=== PATIENT | male | born 1975 | race Two or more races ===

== ENCOUNTER 2017-11-07 17:50 | Emergency (ER) | payer BC, MEDICAID ==
[~2017-11-07] VITALS: Ht 185.4 cm; Wt 126.1 kg
[2017-11-07 22:07] VITALS: BP 139/85
== END 2017-11-07 22:34 | disposition home or self-care (01) ==
LOC: ER 17:54
DX: R03.0 Elevated blood-pressure reading, without diagnosis of hypertension (principal); E11.9 Type 2 diabetes mellitus without complications; F17.210 Nicotine dependence, cigarettes, uncomplicated

== ENCOUNTER 2019-01-08 08:01 | Emergency (ER) | payer MEDICAID ==
[~2019-01-08] VITALS: Ht 182.9 cm; Wt 122.5 kg
[2019-01-08 08:42] LABS: Basophils # (auto) 0.1 uL; Eosinophils # (auto) 0.3 uL; Eosinophils % (auto) 2.5 % (0.0-7.0); Hematocrit 52.6 % (41.0-53.0); Hemoglobin 17.9 g/dL (13.5-17.5); Lymphocytes # (auto) 2.1 uL; Lymphocytes % (auto) 20.5 % (10.0-50.0); Mean Corpuscular Hemoglobin 30.8 pg (28.0-32.0); Mean Corpuscular Hgb Conc. 34.1 g/dL (32.0-36.0); Mean Corpuscular Volume 90.5 fL (80.0-100.0); Monocytes # (auto) 0.6 uL; Neutrophils # (auto) 7.1 uL; Platelet Count (auto) 342 10^3/uL (140-450); Red Blood Cells 5.81 10^6/uL (4.5-5.90); Red Cell Distribution Width 13.2 % (11.8-14.3); White Blood Cell 10.2 10^3/uL (4.4-10.8)
[2019-01-08] MEDS ORDERED: SODIUM CHLORIDE 0.9% 1,000 ML IV ONE (09:10)
[2019-01-08] MEDS ORDERED: ONDANSETRON HCL 4 MG/2 ML VIAL IV ONE (09:15)
[2019-01-08] MEDS ORDERED: MECLIZINE HCL 25 MG TAB PO ONE (09:15)
[2019-01-08 09:35] LABS: Albumin 4.1 g/dL (3.4-5.0); BUN/Creatinine Ratio 14.3; Calcium 9.1 mg/dL (8.5-10.1); Potassium 3.5 mmol/L (3.5-5.1)
[2019-01-08 09:39] LABS: Bilirubin, Total 0.9 mg/dL (0.2-1.0)
[2019-01-08 10:24] LABS: INR 0.98 (0.9-1.15); Partial Thromboplastin Time 26.6 sec (23.78-33.04); Prothrombin Time 10.5 sec (9.27-12.13)
[2019-01-08 10:40] LABS: Urine Bacteria NONE SEEN /hpf (None Seen); Urine Blood Negative /uL (Negative); Urine Specific Gravity 1.018 (1.001-1.035); Urine WBC 2 /hpf (0 - 3)
[2019-01-08 11:04] LABS: Alcohol, Urine < 3.0 mg/dL (0-5); Amphetamine Screen, Urine NEGATIVE (NEGATIVE); Barbiturate Scree,Urine NEGATIVE (NEGATIVE); Benzodiazephine Screen, Urine NEGATIVE (NEGATIVE); Cannabinoid Screen, Urine POSITIVE (NEGATIVE); Cocaine Screen, Urine NEGATIVE (NEGATIVE); Opiate Scree,Urine NEGATIVE (NEGATIVE); Phencyclidine Screen, Urine NEGATIVE (NEGATIVE)
[2019-01-08] MEDS ORDERED: LORazepam 2MG/ML-1ML VIAL IV ONE (13:30)
[2019-01-08 16:59] VITALS: BP 121/87
== END 2019-01-08 17:27 | disposition home or self-care (01) ==
LOC: ER 08:01
DX: G93.5 Compression of brain (principal); I10 Essential (primary) hypertension; F17.210 Nicotine dependence, cigarettes, uncomplicated
CPT/HCPCS: 36415; 70450; 70545; 70551; 71046; 80053; 80307; 81001; 85025; 85610; 85730; 93005; 96361; 96374; 99284; J2060; J7030

== ENCOUNTER 2020-05-28 11:28 | Inpatient (IN) | payer BC, MEDICAID ==
[~2020-05-28] VITALS: Ht 185.4 cm; Wt 101.6 kg
[2020-05-28] MEDS ORDERED: SODIUM CHLORIDE 0.9% 1,000 ML IVB ONE (12:07)
[2020-05-28 12:44] LABS: Basophils # (auto) 0.1 10 ^3/uL (0-0.2); Basophils % (auto) 0.6 % (0.0-2.0); Eosinophils # (auto) 0.3 10 ^3/uL (0-0.8); Eosinophils % (auto) 2.7 % (0.0-7.0); Hematocrit 46.8 % (41.0-53.0); Hemoglobin 16.3 g/dL (13.5-17.5); Lymphocytes # (auto) 1.4 10 ^3/uL (0.4-5.4); Lymphocytes % (auto) 14.9 % (10.0-50.0); Mean Corpuscular Hgb Conc. 34.9 g/dL (32.0-36.0); Mean Corpuscular Volume 91.6 fL (80.0-100.0); Monocytes # (auto) 0.5 10 ^3/uL (0-1.3); Neutrophils # (auto) 7.3 10 ^3/uL (1.6-8.6); Neutrophils % (auto) 76.8 % (37.0-80.0); Nucleated Red Blood Cells % 0.1 %; Platelet Count (auto) 286 10^3/uL (140-450); Red Cell Distribution Width 13.4 % (11.8-14.3); White Blood Cell 9.5 10^3/uL (4.4-10.8)
[2020-05-28 13:02] LABS: INR 1.03 (0.9-1.15)
[2020-05-28 13:09] LABS: Albumin 3.9 g/dL (3.4-5.0); Magnesium 2.4 mg/dL (1.6-2.6); Potassium 4.3 mmol/L (3.5-5.1)
[2020-05-28 13:14] LABS: BUN/Creatinine Ratio 11.6; Bilirubin, Total 0.5 mg/dL (0.2-1.0); Total Protein 7.7 g/dL (6.4-8.2)
[2020-05-28] MEDS ORDERED: HYDROcodone-ACET 10/325MG TAB PO ONE (14:15)
[2020-05-28 14:31] LABS: Lactic Acid w/Reflex 2.5 mmol/L (0.4-2.0)
[2020-05-28 16:14] LABS: Urine Bacteria NONE SEEN /hpf (None Seen); Urine Blood Negative /uL (Negative); Urine Specific Gravity 1.006 (1.001-1.035); Urine WBC <1 /hpf (0 - 3)
[2020-05-28] MEDS ORDERED: cefTRIAXone 1GM/50ML D5W 50 ML IV ONE (16:15)
[2020-05-28] MEDS ORDERED: D5W 5% 1,000 ML IV SCH (17:24)
[2020-05-28] MEDS ORDERED: MORPHINE SULF INJ 2 MG/ML SYRINGE 1ML IV PRN ×2 (17:30)
[2020-05-28] MEDS ORDERED: NITROGLYCERIN 0.4 MG SL TAB SL PRN (17:30)
[2020-05-28] MEDS ORDERED: ACETAMINOPHEN 325 MG TAB PO PRN (17:30)
[2020-05-28] MEDS ORDERED: ONDANSETRON HCL 4 MG/2 ML VIAL IV PRN (17:30)
[2020-05-28] MEDS ORDERED: HYD25RS PR (18:45)
[2020-05-28] MEDS ORDERED: LOSA-69 PO (18:45)
[2020-05-28] MEDS ORDERED: SULF-92 PO (18:45)
--- NOTE | 2020-05-28 20:18 | NUR ---
[facility] admit from ER BOUCHRA FLYNN admitted to [facility]. Patient oriented to Keya Prasad, primary RN, unit, room, bed, and unit policies regarding patient care and visiting hours. Patient weighed by bedscale and encouraged to call if they need something. All questions and concerns addressed, patient verbalized understanding. Note:
[2020-05-28] MEDS: HYDROCORTISONE ACET 25 MG RECTAL SUPP PR SCH (22:00)
[2020-05-29 05:00] VITALS: BP 113/60
[2020-05-29 08:32] VITALS: BP 121/82
--- NOTE | 2020-05-29 08:36 | NUR ---
Opening Shift Note Assumed care of patient, awake and alert. No S/S of distress/SOB or pain. Instructed on POC and to call for assist PRN, will continue to monitor for changes Q1hr and PRN. per noc RN stated pt refused suppsitory due to pt not letting us assess rectal area, educated pt on the importance of this nurse assessment and suppositiry, per pt "thats embarrassing i dont want to show you"
[2020-05-29] MEDS ORDERED: LIDOCAINE HCL 5 % TOP OINT 35 GM TOP PRN (09:45)
[2020-05-29] MEDS: HYDROCORTISONE ACET 25 MG RECTAL SUPP PR SCH ×2 (10:00→21:30)
[2020-05-29] MEDS: cefTRIAXone 1GM/50ML D5W 50 ML IV SCH (10:00)
[2020-05-29] MEDS ORDERED: HYDROCORTISONE 2.5% TOPICAL CREAM 30GM TUBE PR SCH (10:00)
--- NOTE | 2020-05-29 10:15 | NUR ---
provided new gown for pt pt stated he wants to clean up
--- NOTE | 2020-05-29 10:30 | NUR ---
md king rounded on patient
--- NOTE | 2020-05-29 11:08 | NUR ---
md dsouza rounded on patient
--- NOTE | 2020-05-29 12:13 | NUR ---
pt signed health release for the gastro group
[2020-05-29 12:56] VITALS: BP 129/86
--- NOTE | 2020-05-29 14:38 | NUR ---
md sapna bedside discussing procedure for tomorrow pt to be NPO at midnight
--- NOTE | 2020-05-29 15:20 | NUR ---
Nutrition Assessment/Consult Notes Please refer to link for full assessment notes. Est Energy needs: 4854-9571 kcals (17-20 kcal/kgBW) Est Protein needs: 83-103 gms/day (0.8-1.0 gm/kgBW) Will continue to monitor and reassess prn. Addendum: 05/29/20 at [address] Amended: Links added.
--- NOTE | 2020-05-29 15:28 | NUR ---
pt signed ama form to go downstairs, pt stated he doesnt smoke and will not be smoking, pt in personal clothes and not a hospital gown, educated importance of hospital gown in identifying him as inpatient, pt wants to wear his own clothes downstairs
--- NOTE | 2020-05-29 15:51 | NUR ---
pt went downstairs to filler picker check from front desk admin
--- NOTE | 2020-05-29 15:51 | NUR ---
pt stated he needs a new hospital gown to change into because he dropped the one her previously had on the ground, new gown provided
--- NOTE | 2020-05-29 16:06 | NUR ---
pt back in room signed consents for anal examination under anesthesia procedure tomorrow
[2020-05-29 16:32] VITALS: BP 125/73
[2020-05-29] MEDS: HYDROcodone-ACET 5/325MG TAB PO PRN (18:44)
--- NOTE | 2020-05-29 19:24 | NUR ---
Opening Shift Note Assumed care of patient, awake and alert x 4. No S/S of distress/SOB. Bed is in lowest position and locked. Call light within reach. Board updated. Instructed on POC and to call for assist PRN, will continue to monitor for changes Q1hr and PRN.
[2020-05-29] MEDS: HYDROCORTISONE 2.5% TOPICAL CREAM 30GM TUBE PR SCH (21:30)
[2020-05-29 22:00] VITALS: BP 146/79
[2020-05-30] MEDS: HYDROcodone-ACET 5/325MG TAB PO PRN ×2 (00:02→20:10)
[2020-05-30 05:00] VITALS: BP 149/82
[2020-05-30 06:40] LABS: Basophils # (auto) 0 10 ^3/uL (0-0.2); Basophils % (auto) 0.6 % (0.0-2.0); Eosinophils # (auto) 0.5 10 ^3/uL (0-0.8); Eosinophils % (auto) 7.1 % (0.0-7.0); Hematocrit 46.7 % (41.0-53.0); Hemoglobin 16.5 g/dL (13.5-17.5); Lymphocytes # (auto) 2.4 10 ^3/uL (0.4-5.4); Lymphocytes % (auto) 33.8 % (10.0-50.0); Mean Corpuscular Hemoglobin 32.5 pg (28.0-32.0); Mean Corpuscular Hgb Conc. 35.2 g/dL (32.0-36.0); Mean Corpuscular Volume 92.3 fL (80.0-100.0); Monocytes # (auto) 0.4 10 ^3/uL (0-1.3); Monocytes % (auto) 6.3 % (0.0-12.0); Neutrophils # (auto) 3.7 10 ^3/uL (1.6-8.6); Neutrophils % (auto) 52.2 % (37.0-80.0); Nucleated Red Blood Cells % 0.1 %; Platelet Count (auto) 275 10^3/uL (140-450); Red Blood Cells 5.07 10^6/uL (4.5-5.90); Red Cell Distribution Width 13.4 % (11.8-14.3)
[2020-05-30 06:50] LABS: Calcium 8.9 mg/dL (8.5-10.1); Potassium 3.6 mmol/L (3.5-5.1)
[2020-05-30 06:52] LABS: BUN/Creatinine Ratio 13.5
--- NOTE | 2020-05-30 08:10 | NUR ---
Opening Shift Note Assumed care of patient, awake and alert and oriented x4. No S/S of distress/SOB or pain. Pt. NPO status awaiting procedure today. Instructed on POC and to call for assist PRN, will continue to monitor for changes Q1hr and PRN.
[2020-05-30 09:00] VITALS: BP 146/77
--- NOTE | 2020-05-30 10:16 | NUR ---
DR ALANIS AT BEDSIDE. NO NEW ORDERS
[2020-05-30] MEDS: cefTRIAXone 1GM/50ML D5W 50 ML IV SCH (10:37)
[2020-05-30] MEDS: HYDROCORTISONE ACET 25 MG RECTAL SUPP PR SCH ×2 (10:38→22:00)
[2020-05-30] MEDS: HYDROCORTISONE 2.5% TOPICAL CREAM 30GM TUBE PR SCH ×2 (10:38→22:00)
--- NOTE | 2020-05-30 11:20 | NUR ---
This RN took patient down to OR. Pt. showed no signs or symptoms of distress.
[2020-05-30] MEDS ORDERED: TETRACAINE 1% INJ 2 ML VIAL IJ ONE (13:08)
[2020-05-30] MEDS ORDERED: fentaNYL CITRATE 100 MCG/2 ML VL ONE ×2 (13:40→14:22)
[2020-05-30] MEDS ORDERED: PROPOFOL 10 MG/ML 20 ML IV ONE (13:40)
[2020-05-30] MEDS ORDERED: ONDANSETRON HCL 4 MG/2 ML VIAL ONE (13:40)
[2020-05-30] MEDS ORDERED: MIDAZOLAM HCL 1MG/1ML-2 ML VIAL ONE (13:40)
[2020-05-30] MEDS ORDERED: SODIUM CHLORIDE LOCK 10 ML ONE (13:40)
[2020-05-30] MEDS ORDERED: MEPERIDINE HCL (25 MG/ML) 1ML VIAL ONE (13:40)
[2020-05-30] MEDS ORDERED: SUCCINYLCHOLINE CHLORIDE 20 MG/ML 10ML VIAL IV ONE (13:41)
[2020-05-30] MEDS ORDERED: ROCURONIUM 10MG/ML 10ML VIAL IV ONE (13:41)
[2020-05-30] MEDS ORDERED: BUPIVACAINE W/ EPINEPH 0.25% INJ 50ML MDV ONE (13:49)
[2020-05-30] MEDS ORDERED: GELATIN 1 SPONGE SIZE 100 TOP ONE (13:49)
[2020-05-30] MEDS ORDERED: GELATIN 1 SPONGE SIZE 50 TOP ONE (13:49)
[2020-05-30] MEDS ORDERED: LIDOCAINE 2% JELLY 11ml (GLYDO) ONE (13:51)
[2020-05-30] MEDS ORDERED: LIDOCAINE HCL 2% TOP JELLY 5ML TOP ONE (13:51)
[2020-05-30] MEDS ORDERED: KETOROLAC TROMETH 30 MG/ML 1ML VIAL IV ONE (15:00)
[2020-05-30] MEDS ORDERED: MORPHINE SULFATE 4 MG/ML SYR/VIAL IV PRN (15:00)
[2020-05-30] MEDS ORDERED: HYDROmorphone HCL 2 MG/ML VL IV PRN (15:00)
[2020-05-30] MEDS ORDERED: METOCLOPRAMIDE HCL 5MG/ml INJ 2ml VIAL IV PRN (15:00)
[2020-05-30 16:54] VITALS: BP 147/88
--- NOTE | 2020-05-30 19:50 | NUR ---
Opening Shift Note Assumed care of patient, awake and alert. No S/S of distress/SOB. Instructed on POC and to call for assist PRN. Bed in lowest locked position, call light within reach, side rails up x2. Will continue to monitor for changes Q1hr and PRN.
[2020-05-30 22:00] VITALS: BP 126/69
[2020-05-31 04:49] VITALS: BP 132/73
[2020-05-31 09:29] VITALS: BP 129/88
--- NOTE | 2020-05-31 09:36 | NUR ---
DR ALANIS AT BEDSIDE. NEW ORDERS RECEIVED.
[2020-05-31] MEDS: HYDROCORTISONE 2.5% TOPICAL CREAM 30GM TUBE PR SCH ×2 (10:00→22:00)
[2020-05-31] MEDS: HYDROCORTISONE ACET 25 MG RECTAL SUPP PR SCH ×2 (10:00→22:00)
[2020-05-31] MEDS: cefTRIAXone 1GM/50ML D5W 50 ML IV SCH (10:04)
--- NOTE | 2020-05-31 10:44 | NUR ---
DR PETERS AT BEDSIDE. NEW ORDERS RECEIVED.
[2020-05-31] MEDS: metroNIDAZOLE 500MG/100ML 100 ML IV SCH ×3 (12:03→22:23)
--- NOTE | 2020-05-31 12:25 | NUR ---
Nutrition Followup Notes Wt: 100.7 kg Pt was sleeping with no family by bedside. per records pt s/p sx for fistula on 05/30. pt with no distress noted. pt is current M.soft diet with no PO recorded yet as pt was NPO Est Energy needs: 3371-3218 kcals (17-20 kcal/kgBW), Est Protein needs: 83-103 gms/day (0.8-1.0 gm/kgBW). Will continue to monitor and reassess prn. LABS: All nutrition related labs wnl GI: Pt has no BM reported per RN doc BS: 21 low risk. Refer to wound assessment report for full details. PES: Obesity aeb 123% IBW and BMI of 30.0 kg/m2 r/t energy intake in excess of energy needs Comments: Will continue to monitor PO intake, skin status, pertinent labs and weight trends. Will f/u in 3-5 days. 1) Continue current plan of care. 2) continue assistance with meals
[2020-05-31 13:09] VITALS: BP 130/76
[2020-05-31 16:34] VITALS: BP 111/63
--- NOTE | 2020-05-31 19:30 | NUR ---
Opening Shift Note Assumed care of patient, awake and alert x4. No S/S of distress/SOB. Instructed on POC and to call for assist PRN. Bed is in the lowest locked position, call light within reach, side rails up x2. Will continue to monitor for changes Q1hr and PRN.
[2020-05-31 23:53] VITALS: BP 130/72
[2020-06-01] MEDS: metroNIDAZOLE 500MG/100ML 100 ML IV SCH (05:54)
[2020-06-01 06:19] VITALS: BP 121/81
[2020-06-01 06:24] LABS: Basophils # (auto) 0 10 ^3/uL (0-0.2); Basophils % (auto) 0.4 % (0.0-2.0); Eosinophils # (auto) 0.2 10 ^3/uL (0-0.8); Eosinophils % (auto) 1.8 % (0.0-7.0); Hematocrit 44.8 % (41.0-53.0); Hemoglobin 15.6 g/dL (13.5-17.5); Lymphocytes # (auto) 2.8 10 ^3/uL (0.4-5.4); Lymphocytes % (auto) 32.9 % (10.0-50.0); Mean Corpuscular Hemoglobin 32.3 pg (28.0-32.0); Mean Corpuscular Hgb Conc. 34.9 g/dL (32.0-36.0); Mean Corpuscular Volume 92.5 fL (80.0-100.0); Monocytes # (auto) 0.7 10 ^3/uL (0-1.3); Monocytes % (auto) 7.6 % (0.0-12.0); Neutrophils # (auto) 4.9 10 ^3/uL (1.6-8.6); Neutrophils % (auto) 57.3 % (37.0-80.0); Nucleated Red Blood Cells % 0.1 %; Platelet Count (auto) 262 10^3/uL (140-450); Red Blood Cells 4.84 10^6/uL (4.5-5.90); Red Cell Distribution Width 13.2 % (11.8-14.3); White Blood Cell 8.5 10^3/uL (4.4-10.8)
[2020-06-01 08:31] VITALS: BP 123/54
[2020-06-01] MEDS: HYDROCORTISONE 2.5% TOPICAL CREAM 30GM TUBE PR SCH (09:48)
[2020-06-01] MEDS: cefTRIAXone 1GM/50ML D5W 50 ML IV SCH (09:48)
[2020-06-01] MEDS: HYDROCORTISONE ACET 25 MG RECTAL SUPP PR SCH (09:48)
[2020-06-01] MEDS: HYDROcodone-ACET 5/325MG TAB PO PRN (09:49)
[2020-06-01 11:30] VITALS: BP 123/54
[2020-06-01 12:44] VITALS: BP 139/96
--- NOTE | 2020-06-01 13:25 | NUR ---
Discharge instructions given as ordered. Encourage to follow up with PMD as instructed. All questions and concerns addressed. Patient verbalized understanding. Medication reconciliation form completed and copy given to patient. IV removed with catheter intact, pressure dressing applied.Patient taken to vehicle via wheelchair with all personal belongings, accompanied by staff and family member. No distress noted at time of departure.
== END 2020-06-01 13:24 | disposition home or self-care (01) | DRG 395 ==
LOC: ER 11:28 → OVERFLOW 11:29 → WEST WING 20:18
PROVIDERS: ADMIT Nurse Practitioner Family; ATTEND Family Medicine
PROC: 0H89XZZ Division of Perineum Skin, External Approach (ICD-10-PCS; principal; 2020-05-30 13:51)
DX: K60.3 Anal fistula (principal); K60.2 Anal fissure, unspecified; K62.89 Other specified diseases of anus and rectum; D89.9 Disorder involving the immune mechanism, unspecified; I10 Essential (primary) hypertension; K64.8 Other hemorrhoids; K40.90 Unilateral inguinal hernia, without obstruction or gangrene, not specified as recurrent; K64.5 Perianal venous thrombosis; Z79.899 Other long term (current) drug therapy; Z79.891 Long term (current) use of opiate analgesic; Z79.01 Long term (current) use of anticoagulants; Z87.891 Personal history of nicotine dependence
CPT/HCPCS: 36415; 71045; 74176; 80048; 80053; 81001; 83605; 83735; 85025; 85610; 85730; 86850; 86900; 86901; 87040; G0378; J0330; J0696; J2250; J2405; J2704; J3490

== ENCOUNTER 2022-11-08 18:56 | Emergency (ER) | payer BC ==
[~2022-11-08] VITALS: Ht 182.9 cm; Wt 113.4 kg
[~2022-11-08 18:56] MED LIST: HYD25RS PR; LOSA-69 PO; SULF800T8 PO
[2022-11-08] MEDS ORDERED: cloNIDine HCL 0.1 MG TAB PO ONE (19:30)
[2022-11-08 21:47] LABS: Basophils # (auto) 0.1 10 ^3/uL (0-0.2); Basophils % (auto) 0.6 % (0.0-2.0); Eosinophils # (auto) 0.2 10 ^3/uL (0-0.8); Eosinophils % (auto) 1.9 % (0.0-7.0); Hematocrit 45.3 % (41.0-53.0); Hemoglobin 15.9 g/dL (13.5-17.5); Lymphocytes # (auto) 2.2 10 ^3/uL (0.4-5.4); Lymphocytes % (auto) 17.7 % (10.0-50.0); Mean Corpuscular Hemoglobin 32.5 pg (28.0-32.0); Mean Corpuscular Hgb Conc. 35.1 g/dL (32.0-36.0); Mean Corpuscular Volume 92.6 fL (80.0-100.0); Monocytes # (auto) 0.7 10 ^3/uL (0-1.3); Monocytes % (auto) 5.8 % (0.0-12.0); Neutrophils # (auto) 9.2 10 ^3/uL (1.6-8.6); Nucleated Red Blood Cells % 0.1 %; Red Blood Cells 4.89 10^6/uL (4.5-5.90); Red Cell Distribution Width 13.3 % (11.8-14.3); White Blood Cell 12.4 10^3/uL (4.4-10.8)
[2022-11-08 22:16] LABS: Albumin 3.5 g/dL (3.4-5.0); BUN/Creatinine Ratio 17.5; Calcium 8.8 mg/dL (8.5-10.1); Potassium 4.3 mmol/L (3.5-5.1)
[2022-11-08 22:19] LABS: Bilirubin, Total 0.4 mg/dL (0.2-1.0); Total Protein 7.8 g/dL (6.4-8.2)
[2022-11-08] MEDS ORDERED: LOSA-39 PO (23:27)
[2022-11-08] MEDS ORDERED: ATOR10TA PO (23:27)
[2022-11-08] MEDS ORDERED: ACET1CAP14 PO (23:28)
[2022-11-08] MEDS ORDERED: ACETAMINOPHEN 500 MG TAB PO ONE (23:30)
[2022-11-08 23:52] VITALS: BP 120/83
== END 2022-11-08 23:53 | disposition home or self-care (01) ==
LOC: EDBD 18:56 → ER 19:04
DX: I10 Essential (primary) hypertension (principal); M54.30 Sciatica, unspecified side; E78.5 Hyperlipidemia, unspecified; F41.9 Anxiety disorder, unspecified; Z87.891 Personal history of nicotine dependence
CPT/HCPCS: 36415; 70450; 80053; 84484; 85025

== ENCOUNTER → 2025-07-01 | Outpatient (CLI) | payer BC ==
[~2025-07-01] MED LIST changes: +ACET1CAP14 PO; +ALBU108A5 IN; +ATOR10TA PO; +AZIT500T66 PO; +LOSA-534 PO; +LOSA-535 PO; -LOSA-69 PO; +PRED20TA2 PO; +SULF1TAB75 PO; -SULF800T8 PO
== END | disposition home or self-care (01) ==
LOC: LAB 12:05
PROVIDERS: ATTEND Anesthesiology
DX: R19.7 Diarrhea, unspecified (principal)
CPT/HCPCS: 87177